=== PATIENT | female | born 1965 | race American Indian/Alaskan Native ===

== ENCOUNTER 2022-04-09 18:26 | Emergency (ER) | payer OTHER ==
[2022-04-09 19:29] VITALS: BP 138/87
== END 2022-04-09 23:00 | disposition left against medical advice (07) ==
LOC: ED 18:26
DX: R07.9 Chest pain, unspecified (principal); Z53.21 Procedure and treatment not carried out due to patient leaving prior to being seen by health care provider

== ENCOUNTER 2022-04-12 15:09 | Emergency (ER) | payer OTHER ==
[2022-04-12 15:41] VITALS: BP 146/90
--- NOTE | 2022-04-13 13:30 | Electrocardiograph Report ---
[facility] Test Date: 2022-04-12 Test Time: 15:45:12 Pat Name: MARTINA LÓPEZ Department: Room: Gender: F Single Stroke Preformer: DOMINICK : 1965 Requested By: AL BAJAW Order Number: [id number] Reading MD: Tawanda Huerta Measurements Intervals [place] Rate: 92 P: 30 [place]: 144 QRS: -68 QRSD: 144 T: 92 QT: 453 QTc: 563 Interpretive Statements Sinus rhythm Left anterior fascicular block Right bundle branch block Abnormal ECG No previous ECG available for comparison Electronically Signed On 04-13-2022 13:29:40 EDT by Tawanda Huerta
== END 2022-04-13 00:58 | disposition left against medical advice (07) ==
LOC: ED 15:09
DX: R07.9 Chest pain, unspecified (principal); R53.83 Other fatigue; Z53.21 Procedure and treatment not carried out due to patient leaving prior to being seen by health care provider
CPT/HCPCS: 93005

== ENCOUNTER 2022-07-29 14:12 | Inpatient (IN) | payer OTHER ==
[2022-07-29] MEDS ORDERED: SUCCINYLCHOLINE CHLORIDE 200 MG/10 ML INJ MDV IV ONE (14:30)
[2022-07-29] MEDS ORDERED: ETOMIDATE 20 MG/10 ML INJ IV ONE (14:30)
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
[2022-07-29 14:50] LABS: Amphetamine Screen,Urine Negative; Benzodiazepines Screen,Urine Negative; Cannabinoid Screen,Urine Negative; Cocaine Screen,Urine Negative; Methadone Screen,Urine Negative; Opiate Screen,Urine Negative
--- NOTE | 2022-07-29 14:57 | XRay Report ---
CHEST 1 VIEW 07/29/2022 2:33 PM INDICATION / CLINICAL INFORMATION: ETT placement. COMPARISON: September 2012 FINDINGS: SUPPORT DEVICES: ET tube is in position, tip projecting over the mid trachea. NG tube tip beyond the inferior margin of the radiograph, sidehole projecting over the neck. HEART / MEDIASTINUM: Enlarged. LUNGS / PLEURA: Mild diffuse interstitial opacities which favor a component of edema and/or pneumonit is. Trace fissural fluid outlines the right minor fissure. Mild basilar atelectasis. No pneumothorax. ADDITIONAL FINDINGS: No significant additional findings. IMPRESSION: 1. ET tube and NG tube project satisfactorily. 2. Lung findings as above. Signer Name: Frederic Garza MD Signed: 07/29/2022 2:53 PM Workstation Name: [email or web address]
[2022-07-29 15:00] LABS: Basophils % (Auto) 0.3 % (0.0-1.8); Eosinophils # (Auto) 0.1 K/mm3 (0.0-0.4); Eosinophils % (Auto) 0.4 % (0.0-4.3); Hematocrit 30.2 % (30.3-42.9); Hemoglobin 9.8 gm/dl (10.1-14.3); Lymphocytes # (Auto) 0.9 K/mm3 (1.2-5.4); Lymphocytes % (Auto) 5.4 % (13.4-35.0); Mean Corpuscular HGB Conc 32 % (30-34); Mean Corpuscular Volume 87 fl (79-97); Monocytes # (Auto) 0.7 K/mm3 (0.0-0.8); Monocytes % (Auto) 4.1 % (0.0-7.3); Platelet Count 572 K/mm3 (140-440); Red Blood Count 3.48 M/mm3 (3.65-5.03); Red Cell Distribution Width 15.8 % (13.2-15.2)
[2022-07-29 15:05] LABS: Alanine Aminotransferase 6 units/L (7-56); Albumin 2.2 g/dL (3.9-5); BUN/Creatinine Ratio 8; Blood Urea Nitrogen 8 mg/dL (7-17); Calcium 7.3 mg/dL (8.4-10.2); Hemolysis Index 5
[2022-07-29 15:19] LABS: Bacteria,Urine 1+ /HPF (Negative); Hyaline Casts,Urine 12 /LPF; Mucus,Urine FEW /HPF
[2022-07-29] MEDS ORDERED: LORazepam 2 MG/ML VIAL IV ONE (15:22)
[2022-07-29 15:24] LABS: Chol/HDL Ratio 2.95 %; HDL Cholesterol 45 mg/dL (40-59); LDL Cholesterol,Direct 70 mg/dL (50-130)
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
[2022-07-29 15:37] LABS: Bilirubin,Urine NEG (Negative); Blood,Urine SM (Negative); Color,Urine Yellow (Yellow)
[2022-07-29 15:47] LABS: Protein,Urine >500 mg/dL (Negative)
[2022-07-29] MEDS: fentaNYL DRIP Premix 1,000 MCG/100 ML BAG IV SCH ×4 (15:51→23:21)
[2022-07-29] MEDS: POTASSIUM CHLORIDE 10 MEQ 10 MEQ/100 ML BAG IV SCH ×2 (16:08→17:02)
[2022-07-29 16:37] LABS: ABG Base Excess 3.2 mmol/L (-2.0-3.0); ABG HCO3 27.4 mmol/L (20.0-26.0); ABG Methemoglobin 0.5 % (0.0-1.5); ABG Oxygen Saturation 99.6 % (95.0-99.0); ABG PCO2 40.3 mm Hg; ABG PH 7.452 pH Units (7.350-7.450); ABG PO2 466.1 mm Hg (80.0-90.0)
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
[2022-07-29] MEDS ORDERED: ONDANSETRON 4 MG/2 ML INJ IV PRN (20:20)
[2022-07-29] MEDS ORDERED: MORPHINE 2 MG/1 ML INJ IV PRN (20:20)
[2022-07-29] MEDS ORDERED: METOCLOPRAMIDE 10 MG/2 ML INJ IV PRN (20:20)
[2022-07-29] MEDS ORDERED: SODIUM CHLORIDE 0.9% 1000 ML 1,000 ML IV SCH (20:30)
[2022-07-29] MEDS ORDERED: VANCOMYCIN PHARMACY TO DOSE IV SCH (21:00)
[2022-07-29] MEDS ORDERED: IPRATROPIUM/ALBUTEROL SULFATE 3 ML AMPUL.NEB IH PRN (21:03)
[2022-07-29] MEDS ORDERED: ALBUTEROL 2.5 MG/3 ML NEBU IH PRN (21:13)
[2022-07-29] MEDS ORDERED: VANCOMYCIN 1,250 MG in SODIUM CHLORIDE 0.9% 250ML 250 ML IV ONE (21:30)
[2022-07-29] MEDS: HEPARIN 5,000 UNIT/1 ML VIAL SUB-Q SCH (23:07)
[2022-07-30] MEDS: CEFEPIME/NS 2 GM/100 ML 2 GM/100 ML BAG IV SCH ×2 (00:27→05:00)
[2022-07-30] MEDS: POTASSIUM CHLORIDE 10 MEQ 10 MEQ/100 ML BAG IV SCH ×9 (00:27→15:08)
[2022-07-30 04:47] LABS: ABG Base Excess 6.8 mmol/L (-2.0-3.0); ABG HCO3 28.8 mmol/L (20.0-26.0); ABG Methemoglobin 0.4 % (0.0-1.5); ABG Oxygen Saturation 99.3 % (95.0-99.0); ABG PCO2 31.3 mm Hg; ABG PH 7.582 pH Units (7.350-7.450); ABG PO2 189.4 mm Hg (80.0-90.0)
[2022-07-30 05:18] LABS: Basophils % (Auto) 0.3 % (0.0-1.8); Eosinophils % (Auto) 0.2 % (0.0-4.3); Hematocrit 27.8 % (30.3-42.9); Hemoglobin 9.3 gm/dl (10.1-14.3); Lymphocytes # (Auto) 0.5 K/mm3 (1.2-5.4); Lymphocytes % (Auto) 4.5 % (13.4-35.0); Mean Corpuscular HGB Conc 33 % (30-34); Mean Corpuscular Volume 86 fl (79-97); Monocytes # (Auto) 0.8 K/mm3 (0.0-0.8); Monocytes % (Auto) 6.9 % (0.0-7.3); Platelet Count 448 K/mm3 (140-440); Red Blood Count 3.24 M/mm3 (3.65-5.03); Red Cell Distribution Width 15.4 % (13.2-15.2)
[2022-07-30 05:34] LABS: Alanine Aminotransferase 6 units/L (7-56); Albumin 2.1 g/dL (3.9-5); BUN/Creatinine Ratio 10; Blood Urea Nitrogen 11 mg/dL (7-17); Calcium 7.1 mg/dL (8.4-10.2); Hemolysis Index 3
[2022-07-30] MEDS ORDERED: POTASSIUM CHLORIDE ER 20 MEQ TAB PO ONE (06:09)
[2022-07-30] MEDS: levETIRAcetam 750 MG in DEXTROSE 5% IN WATER 100 ML IV SCH ×2 (06:28→17:23)
[2022-07-30] MEDS ORDERED: MAGNESIUM SULFATE 2 GM/50 ML BAG IV ONE (06:30)
[2022-07-30] MEDS ORDERED: POTASSIUM CHLORIDE 10 MEQ 10 MEQ/100 ML BAG IV SCH (07:00)
[2022-07-30] MEDS ORDERED: MINERAL OIL/PETROLATUM, WHITE OPHTH OINT 3.5 GM OU PRN (08:02)
[2022-07-30] MEDS ORDERED: LIP THERAPY VASELINE TP PRN (08:02)
[2022-07-30] MEDS ORDERED: MAGNESIUM SULFATE 2 GM/50 ML BAG IV SCH (08:30)
--- NOTE | 2022-07-30 08:51 | XRay Report ---
CHEST - 1 VIEW 0811 hours INDICATION: Follow up respiratory failure COMPARISON: Yesterday FINDINGS: Support devices: Stable support device positioning. Heart: Stable cardiomediastinal silhouette. Lungs/pleura: Mild pulmonary venous congestion has developed. Small left pleural effusion is suspect ed which appears unchanged. No pneumothorax. Additional findings: None. IMPRESSION: Mild central pulmonary venous congestion. Small left pleural effusion. Signer Name: Oscar Weir Jr, MD Signed: 07/30/2022 8:47 AM Workstation Name: [id number]
[2022-07-30 10:19] LABS: BUN/Creatinine Ratio 10; Blood Urea Nitrogen 11 mg/dL (7-17); Calcium 7.2 mg/dL (8.4-10.2); Hemolysis Index 18
[2022-07-30] MEDS: FAMOTIDINE 20 MG/2 ML INJ IV SCH ×2 (10:23→21:02)
[2022-07-30] MEDS: HEPARIN 5,000 UNIT/1 ML VIAL SUB-Q SCH ×2 (10:23→21:02)
[2022-07-30] MEDS ORDERED: DEXTROSE 50% IN WATER (25GM) 50 ML SYRINGE IV PRN (10:26)
[2022-07-30] MEDS ORDERED: MAGNESIUM SULFATE 4 GM/100 ML BAG IV SCH (10:30)
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
[2022-07-30] MEDS: SENNOSIDES/DOCUSATE SODIUM 8.6/50 MG TAB FEEDTUBE SCH ×2 (10:42→21:02)
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
[2022-07-30] MEDS: AMIODARONE 200 MG TAB PO SCH (21:02)
[2022-07-30] MEDS: METOPROLOL TARTRATE 25 MG TAB PO SCH (21:02)
[2022-07-30] MEDS ORDERED: VANCOMYCIN/NS 1 GM/250 ML 1 GM/250 ML BAG IV SCH (22:00)
[2022-07-31 00:32] LABS: BUN/Creatinine Ratio 11; Blood Urea Nitrogen 11 mg/dL (7-17); Calcium 7.3 mg/dL (8.4-10.2); Hemolysis Index 7
[2022-07-31 05:06] LABS: Hematocrit 27.9 % (30.3-42.9); Hemoglobin 9.3 gm/dl (10.1-14.3); Mean Corpuscular HGB Conc 33 % (30-34); Mean Corpuscular Volume 86 fl (79-97); Platelet Count 388 K/mm3 (140-440); Red Blood Count 3.24 M/mm3 (3.65-5.03); Red Cell Distribution Width 15.3 % (13.2-15.2)
[2022-07-31 05:20] LABS: BUN/Creatinine Ratio 10; Blood Urea Nitrogen 11 mg/dL (7-17); Calcium 7.4 mg/dL (8.4-10.2); Hemolysis Index 2
[2022-07-31] MEDS: levETIRAcetam 750 MG in DEXTROSE 5% IN WATER 100 ML IV SCH (05:38)
[2022-07-31] MEDS: POTASSIUM CHLORIDE 10 MEQ 10 MEQ/100 ML BAG IV SCH ×4 (07:55→18:18)
[2022-07-31] MEDS: HEPARIN 5,000 UNIT/1 ML VIAL SUB-Q SCH ×2 (09:16→22:08)
[2022-07-31] MEDS: ASPIRIN 81 MG TAB CHEW PO SCH (09:16)
[2022-07-31] MEDS: FAMOTIDINE 20 MG TAB PO SCH ×2 (09:16→22:02)
[2022-07-31] MEDS: AMIODARONE 200 MG TAB PO SCH ×2 (09:16→22:02)
[2022-07-31] MEDS: SENNOSIDES/DOCUSATE SODIUM 8.6/50 MG TAB FEEDTUBE SCH ×2 (09:17→22:11)
[2022-07-31] MEDS: METOPROLOL TARTRATE 25 MG TAB PO SCH ×2 (09:18→22:01)
[2022-07-31] MEDS ORDERED: POTASSIUM CHLORIDE ER 20 MEQ TAB PO SCH (10:00)
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
[2022-07-31] MEDS ORDERED: FUROSEMIDE 20 MG/2 ML INJ IV SCH (12:00)
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
--- NOTE | 2022-07-31 17:50 | Electrocardiograph Report ---
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
[2022-07-31] MEDS: ACETAMINOPHEN 325 MG TAB PO PRN (20:11)
[2022-07-31] MEDS: POTASSIUM CHLORIDE ER 20 MEQ TAB PO SCH (22:01)
[2022-08-01 06:32] LABS: Hematocrit 28.3 % (30.3-42.9); Hemoglobin 9.3 gm/dl (10.1-14.3); Mean Corpuscular HGB Conc 33 % (30-34); Mean Corpuscular Volume 87 fl (79-97); Platelet Count 420 K/mm3 (140-440); Red Blood Count 3.27 M/mm3 (3.65-5.03); Red Cell Distribution Width 15.1 % (13.2-15.2)
[2022-08-01 06:44] LABS: Calcium 7.4 mg/dL (8.4-10.2)
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
[2022-08-01] MEDS ORDERED: SODIUM CHLORIDE 0.9% 500 ML 500 ML IV SCH (09:00)
[2022-08-01] MEDS ORDERED: levETIRAcetam 500 MG/5 ML ORAL LIQD PO SCH (10:00)
[2022-08-01] MEDS: HEPARIN 5,000 UNIT/1 ML VIAL SUB-Q SCH ×2 (10:43→22:07)
[2022-08-01] MEDS: FAMOTIDINE 20 MG TAB PO SCH ×2 (10:43→22:06)
[2022-08-01] MEDS: METOPROLOL TARTRATE 25 MG TAB PO SCH ×2 (10:43→22:06)
[2022-08-01] MEDS: ASPIRIN 81 MG TAB CHEW PO SCH (10:43)
[2022-08-01] MEDS: SENNOSIDES/DOCUSATE SODIUM 8.6/50 MG TAB FEEDTUBE SCH ×2 (10:44→22:06)
[2022-08-01] MEDS: POTASSIUM CHLORIDE ER 20 MEQ TAB PO SCH ×2 (10:45→22:06)
[2022-08-01] MEDS: AMIODARONE 200 MG TAB PO SCH ×2 (10:45→22:07)
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
[2022-08-01] MEDS: oxyCODONE /ACETAMINOPHEN 5-325MG TAB PO PRN (13:27)
[2022-08-01] MEDS: ACETAMINOPHEN 325 MG TAB PO PRN (16:04)
[2022-08-01] MEDS ORDERED: levETIRAcetam 500 MG TAB PO SCH (22:00)
[2022-08-01] MEDS: levETIRAcetam 500 MG/5 ML ORAL LIQD PO SCH (22:07)
[2022-08-02] MEDS ORDERED: MORPHINE 2 MG/1 ML INJ IV ONE (05:59)
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
[2022-08-02] MEDS: levETIRAcetam 500 MG/5 ML ORAL LIQD PO SCH ×2 (12:53→21:22)
[2022-08-02] MEDS: AMIODARONE 200 MG TAB PO SCH ×2 (12:54→21:19)
[2022-08-02] MEDS: ASPIRIN 81 MG TAB CHEW PO SCH (12:55)
[2022-08-02] MEDS: oxyCODONE /ACETAMINOPHEN 5-325MG TAB PO PRN ×2 (12:55→21:13)
[2022-08-02] MEDS: FAMOTIDINE 20 MG TAB PO SCH ×2 (12:55→21:22)
[2022-08-02] MEDS: METOPROLOL TARTRATE 25 MG TAB PO SCH ×2 (12:56→21:20)
[2022-08-02] MEDS: HEPARIN 5,000 UNIT/1 ML VIAL SUB-Q SCH ×2 (12:56→21:20)
[2022-08-02] MEDS: SENNOSIDES/DOCUSATE SODIUM 8.6/50 MG TAB FEEDTUBE SCH ×2 (13:07→21:19)
[2022-08-02 23:40] LABS: Calcium 8.2 mg/dL (8.4-10.2)
--- NOTE | 2022-08-03 09:40 | Electrocardiograph Report ---
[facility] Test Date: 2022-08-02 Test Time: 05:43:32 Pat Name: MARTINA LÓPEZ Department: Room: A474 1 Gender: F Sliver Handler: 4 : 1965 Requested By: MILTON DEVINE Order Number: [id number] Reading MD: Tawanda Huerta Measurements Intervals [place] Rate: 70 P: 13 [place]: 169 QRS: -69 QRSD: 151 T: 67 QT: 490 QTc: 529 Interpretive Statements Sinus rhythm Left ventricle hypertrophy Left anterior fascicular block and right bundle branch block Compared to ECG 07/31/2022 07:50:42 No significant change Electronically Signed On 08-03-2022 9:40:43 EDT by Tawanda Huerta
[2022-08-03] MEDS: METOPROLOL TARTRATE 25 MG TAB PO SCH ×2 (10:26→20:59)
[2022-08-03] MEDS: FAMOTIDINE 20 MG TAB PO SCH ×2 (10:26→20:59)
[2022-08-03] MEDS: ASPIRIN 81 MG TAB CHEW PO SCH (10:26)
[2022-08-03] MEDS: SENNOSIDES/DOCUSATE SODIUM 8.6/50 MG TAB FEEDTUBE SCH ×2 (10:26→20:59)
[2022-08-03] MEDS: HEPARIN 5,000 UNIT/1 ML VIAL SUB-Q SCH ×2 (10:27→20:59)
[2022-08-03] MEDS: levETIRAcetam 500 MG/5 ML ORAL LIQD PO SCH ×2 (10:27→20:59)
[2022-08-03] MEDS: AMIODARONE 200 MG TAB PO SCH ×2 (10:27→20:59)
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
--- NOTE | 2022-08-03 12:27 | Electrocardiograph Report ---
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
--- NOTE | 2022-08-03 12:27 | Electrocardiograph Report ---
[facility] Test Date: 2022-07-29 Test Time: 14:34:52 Pat Name: MARTINA LÓPEZ Department: Room: A474 Gender: F Market Director: 0000 : 1965 Requested By: MICHELE COLUNGA Order Number: [id number] Reading MD: Keven Johns Measurements Intervals [place] Rate: 87 P: -40 MO: 116 QRS: -75 QRSD: 157 T: 71 QT: 382 QTc: 455 Interpretive Statements Sinus rhythm Paired ventricular premature comjavascript:perform('study_confirm');jamie IVCD,RBBB LVH with secondary repolarization abnormality ST elevation secondary to LVH Compared to ECG 04/12/2022 15:45:12 Ventricular premature complex(es) now present Left ventricular hypertrophy now present Early repolarization now present ST (T wave) deviation now present Left anterior fascicular block no longer present Electronically Signed On 08-03-2022 9:27:14 PDT by Keven Johns
[2022-08-03 20:40] VITALS: BP 126/71
== END 2022-08-03 23:08 | disposition still patient (30) | DRG 208 ==
LOC: ED 14:12 → CC1 20:20 → 4A 08-01 01:15
PROVIDERS: ADMIT Internal Medicine; ATTEND Hospitalist
PROC: 5A1945Z Respiratory Ventilation, 24-96 Consecutive Hours (ICD-10-PCS; principal; 2022-07-29)
DX: J96.01 Acute respiratory failure with hypoxia (principal); G93.41 Metabolic encephalopathy; E43 Unspecified severe protein-calorie malnutrition; N17.0 Acute kidney failure with tubular necrosis; I50.23 Acute on chronic systolic (congestive) heart failure; J69.0 Pneumonitis due to inhalation of food and vomit; I42.8 Other cardiomyopathies; I48.20 Chronic atrial fibrillation, unspecified; R56.9 Unspecified convulsions; Z68.24 Body mass index [BMI] 24.0-24.9, adult; V43.92XD Unspecified car occupant injured in collision with other type car in traffic accident, subsequent encounter
CPT/HCPCS: 36415; 36600; 70450; 71045; 72125; 80048; 80053; 80061; 80307; 80320; 81001; 82803; 82962; 83735; 84100; 84145; 84484; 85025; 85027; 86140; 87040; 87070; 87086; 87205; 87641; 93005; 93306; 94002; 94003; 94760; 95819; 96374; 96375; 99291; 99292; G0378; J3490; J7060; C8929; G0480; J0330; J0692; J1644; J1940; J1953; J2060; J2270; J3010; J3370; J3475; J3480; J7040; J7050